=== PATIENT | male | born 1945 | race Caucasian/White ===

== ENCOUNTER 2017-04-14 20:12 | Emergency (ER) | payer BC ==
[~2017-04-14] VITALS: Ht 188 cm; Wt 81.6 kg
--- NOTE | ~2017-04-14 | CR63 ---
[facility] A Service of [facility] RADIOLOGY TEXT RESULTS PATIENT: CRISSY MARRERO LOCATION: [facility] : 46 UNIT #: [id number] AGE: [address]: Shila Sanford MD SEX: M ORDER DR: [id number] [facility] [address] [place], [place] [address] [id number] E MR#: [id number] Acc #: [id number] NAME: CRISSY MARRERO : 1945 SEX: M STUDY DATE/TIME: 04/14/2017 21:31 UNIT: [facility] ROOM: STUDY DESCRIPTION: CR Chest 2 View Attending Physician: Shila Sanford M.D. Ordering Physician: Shila Sanford M.D. Primary Care Physician: Edgar Arzate M.D. MEDICAL IMAGING REPORT This report is preliminary unless electronic signature is present EXAM Frontal and lateral views of the chest, 04/14/2017. INDICATIONS 71-year-old male with chest pain; fell this morning at 11 o'clock. Mild chest congestion, altered mental status. Confusion. COMPARISON Two-view chest compared with 12/07/2016. FINDINGS Cardiac silhouette unremarkable. The vascularity is normal. The lungs are clear. No pneumothorax. IMPRESSION Negative chest. No significant change. Dictated by... Que Kong M.D. THIS IS AN ELECTRONICALLY VERIFIED REPORT Que Kong M.D. at 04/15/2017 10:07 PM Josefina TD: 04/15/2017 14:32 JOB #: [id number] MEDICAL IMAGING REPORT Page 1 of 1 COPY
--- NOTE | ~2017-04-14 | CR229 ---
[facility] A Service of [facility] RADIOLOGY TEXT RESULTS PATIENT: CRISSY MARRERO LOCATION: [facility] : 46 UNIT #: [id number] AGE: [address]: Shila Sanford MD SEX: M ORDER DR: [id number] [place] [id number] [facility]. [place], [place] [address] [id number] E MR#: [id number] Acc #: [id number] NAME: CRISSY MARRERO : 1945 SEX: M STUDY DATE/TIME: 04/14/2017 21:32 UNIT: [place] ROOM: STUDY DESCRIPTION: CR Shoulder Min 2 View Lt Attending Physician: Shila Sanford M.D. Ordering Physician: Shila Sanford M.D. Primary Care Physician: Edgar Arzate M.D. MEDICAL IMAGING REPORT This report is preliminary unless electronic signature is present EXAM Left shoulder 04/14/2017. INDICATIONS 71-year-old male with confusion. Mild congestion and chest pain, fell this morning 11 o'clock. Left shoulder pain. TECHNIQUE 3 views left shoulder. COMPARISON Compared with 05/29/2012. FINDINGS The patient is status post prior fracture repair of the left humerus. A metallic plate and multiple screws are present and there is a medullary keron present. Hardware appears intact. No acute fracture identified. No shoulder separation or dislocation. Degenerative change of the glenohumeral joint and AC joint. IMPRESSION 1. Degenerative change in the left shoulder and prior left humerus fracture repair changes. 2. No acute fracture or dislocation. Dictated by... Que Kong M.D. THIS IS AN ELECTRONICALLY VERIFIED REPORT Que Kong M.D. at 04/15/2017 10:06 PM JF/julienne TD: 04/15/2017 14:28 [facility] A Service of [facility] RADIOLOGY TEXT RESULTS PATIENT: CRISSY MARRERO LOCATION: [facility] : 46 UNIT #: [id number] AGE: [address]: Shila Sanford MD SEX: M ORDER DR: JOB #: [id number] MEDICAL IMAGING REPORT Page 1 of 1 COPY
--- NOTE | ~2017-04-14 | CT71 ---
[facility] A Service of [facility] RADIOLOGY TEXT RESULTS PATIENT: CRISSY MARRERO LOCATION: [facility] : 46 UNIT #: [id number] AGE: [address]: Shila Sanford MD SEX: M ORDER DR: [id number] [facility] [address] [place], [place] [address] [id number] P MR#: [id number] Acc #: [id number] NAME: CRISSY MARRERO : 1945 SEX: M STUDY DATE/TIME: 04/14/2017 21:24 UNIT: [facility] ROOM: STUDY DESCRIPTION: CT Head Wo Contrast Attending Physician: Shila Sanford M.D. Ordering Physician: Shila Sanford M.D. Primary Care Physician: Edgar Arzate M.D. MEDICAL IMAGING REPORT This report is preliminary unless electronic signature is present EXAM Head CT, no contrast; 04/14/2017. INDICATIONS 71-year-old male who fell, contusion of the left eye, left forehead and left orbit, neck pain today. TECHNIQUE Noncontrast CT brain was performed. This CT exam was performed with one or more of the following radiation dose reduction techniques: automatic exposure control, adjustment of mA and/or kV according to patient size, and iterative reconstruction. COMPARISON There are no comparisons. FINDINGS CT BRAIN: There is generalized atrophy. Sulci and ventricles otherwise unremarkable. No midline shift. No evidence of acute intracranial hemorrhage. There is no mass, mass effect or edema to suggest acute infarct and no extraaxial fluid collections are present. The globes are intact. There is extensive periorbital soft tissue swelling on the left extending from the level of the left globe cephalad to the forehead and inferiorly along the zygomatic arch. The soft tissue swelling spans a distance of at least study 8.9 cm transverse. There is a focal periorbital hematoma measuring 15 x 10 mm. The patient has a subtle orbital floor fracture on the left, demonstrated on the facial bone CT. Please see that report for further details. There is chronic-appearing ethmoid, frontal, sphenoid and right maxillary sinus disease. There is an air-fluid level in the left maxillary sinus. No distinct calvarial fracture. [facility]. [facility] A Service of [facility] & [facility] RADIOLOGY TEXT RESULTS PATIENT: CRISSY MARRERO LOCATION: [facility] : 46 UNIT #: [id number] AGE: [address]: Shila Sanford MD SEX: M ORDER DR: IMPRESSION 1. Atrophy but no clearly acute intracranial process. No evidence of intracranial hemorrhage. 2. The patient has an orbital floor fracture on the left. Please see the facial bone CT for further details. 3. Periorbital soft tissue swelling with a periorbital hematoma on the left measuring 15 x 10 mm. 4. Air-fluid level in the left maxillary sinus. Chronic-appearing right maxillary sinus and ethmoid, sphenoid and frontal sinus disease. STAT * RESULT Dictated by... Que Kong M.D. THIS IS AN ELECTRONICALLY VERIFIED REPORT Que Kong M.D. at 04/15/2017 2:26 PM JF/abhilash TD: 04/14/2017 22:00 JOB #: [id number] MEDICAL IMAGING REPORT Page 1 of 1 COPY
--- NOTE | ~2017-04-14 | CT101 ---
[facility] A Service of [facility] & [facility] RADIOLOGY TEXT RESULTS PATIENT: CRISSY MARRERO LOCATION: [facility] : 46 UNIT #: [id number] AGE: [address]: Shila Sanford MD SEX: M ORDER DR: [id number] [facility] [address] [place], [place] [address] [id number] P MR#: [id number] [facility] #: [id number] NAME: CRISSY MARRERO : 1945 SEX: M STUDY DATE/TIME: 04/14/2017 21:05 UNIT: [facility] ROOM: STUDY DESCRIPTION: CT Maxillofacial Area Wo Cont Attending Physician: Shila Sanford M.D. Ordering Physician: Shila Sanford M.D. Primary Care Physician: Edgar Arzate M.D. MEDICAL IMAGING REPORT This report is preliminary unless electronic signature is present EXAM Facial bone CT no contrast 04/14/2017 INDICATIONS 71-year-old male who fell, contusion to the left eye and forehead and orbit. Neck pain today. TECHNIQUE Noncontrast CT of the facial bones was performed. Sagittal and coronal reformats performed. This CT exam was performed with one or more of the following radiation dose reduction techniques: automatic control, adjustment of mA and/or kV according to patient size, and iterative reconstruction. No comparisons. FINDINGS CT FACIAL BONES: There is a left periorbital soft tissue hematoma. Left globe grossly intact. Please see CT head same date for further details as this study was tailored to evaluate the osseous structures and the soft tissues are suboptimally characterized or assessed on this examination. There is periorbital soft tissue swelling extending cephalad anterior to the calvaria involving the left forehead and extending inferiorly to the zygomatic arch. Zygomatic arch is intact. There is a subtle minimally-displaced orbital floor fracture anteriorly on the left. There is an air-fluid level in the left maxillary sinus. No additional fracture identified. Nasal bone complex is intact. There is chronic opacification of the entire right maxillary sinus. More chronic-appearing ethmoid and sphenoid sinus disease. Mandible intact. Atherosclerotic calcifications of the carotid systems bilaterally are a risk factor for stroke. There are degenerative changes in the visualized cervical spine. IMPRESSION 1. Subtle orbital floor fracture anteriorly on the left. There is an air-fluid level in the left maxillary sinus. [facility] A Service of [facility] & [facility] RADIOLOGY TEXT RESULTS PATIENT: CRISSY MARRERO [id number] 47 UNIT #: [id number] AGE: [address]: Shila Sanford MD SEX: M ORDER DR: 2. Periorbital soft tissue swelling on the left extending cephalad to the level of the forehead and inferiorly along the zygomatic arch but no additional facial bone fracture identified. 3. Chronic-appearing ethmoid, sphenoid and right maxillary sinus disease. Minimal left frontal sinus disease also appears chronic. STAT * RESULT Dictated by... Que Kong M.D. THIS IS AN ELECTRONICALLY VERIFIED REPORT Que Kong M.D. at 04/15/2017 2:26 PM JF/tuan TD: 04/14/2017 21:57 JOB #: [id number] MEDICAL IMAGING REPORT Page 1 of 1 COPY
--- NOTE | ~2017-04-14 | CT52 ---
[facility] A Service of [facility] RADIOLOGY TEXT RESULTS PATIENT: CRISSY MARRERO LOCATION: [facility] : 46 UNIT #: [id number] AGE: [address]: Shila Sanford MD SEX: M ORDER DR: [id number] [facility] [address] [place], [place] [address] [id number] E MR#: [id number] Acc #: [id number] NAME: CRISSY MARRERO : 1945 SEX: M STUDY DATE/TIME: 04/14/2017 21:05 UNIT: [facility] ROOM: STUDY DESCRIPTION: CT Cervical Spine Wo Cont Attending Physician: Shila Sanford M.D. Ordering Physician: Shila Sanford M.D. Primary Care Physician: Edgar Arzate M.D. MEDICAL IMAGING REPORT This report is preliminary unless electronic signature is present EXAM CT cervical spine, 04/14/2017. HISTORY Fell; contusion left eye, left forehead, left orbit, neck pain times today. TECHNIQUE CT cervical spine performed. Bone and soft tissue windows reviewed. Sagittal and coronal reconstructions performed. This CT exam was performed with one or more of the following radiation dose reduction techniques: automatic exposure control, adjustment of mA and/or kV according to patient size, and iterative reconstruction. COMPARISON No prior CT cervical spine for comparison. FINDINGS Visualized portions of brain unremarkable. Visualized mastoid air cells clear. The visualized oropharyngeal, pharyngeal mucosal, retropharyngeal spaces, larynx, subglottic airway, superior mediastinum, and lung apices show no acute abnormality. Somewhat atrophic thyroid, but no focal abnormality. Visualized submandibular and parotid glands unremarkable. There are vascular calcifications including at the carotid bifurcations. No adenopathy. No indication of traumatic paraspinal soft tissue abnormality. There is some mild straightening of the normal cervical lordosis. Minimal approximately 1-mm anterolisthesis C2 on C3 felt to be secondary to facet degenerative change. Vertebral body heights normal. Mild intervertebral disc space narrowing C4-C5, C5-C6, and mild to moderate narrowing C6-C7. Multilevel disc and facet degenerative changes. No traumatic mal alignment. No fracture. C2-C3: Small posterior central disc bulge. Narrowing anterior thecal space. Mild central spinal canal narrowing. No cord contact or STS. [facility] A Service of [facility] RADIOLOGY TEXT RESULTS PATIENT: CRISSY MARRERO LOCATION: [facility] : 47 UNIT #: [id number] AGE: [address]: Shila Sanford MD SEX: M ORDER DR: compression. Neural foramina normal. C3-C4: Posterior disc bulge. Mild central spinal canal narrowing. There is anterior cord contact and some effacement of the anterior cord contour. Left greater than right uncovertebral hypertrophic change. Mild to moderate narrowing of the left neural foramen. C4-C5: Posterior disc osteophyte complex asymmetrically prominent, right paracentral region. Mild to [id number] central and right paracentral spinal canal narrowing. Cord contact. Some effacement of anterior cord contour. Narrowing of the right lateral recess. Mild right foraminal narrowing, due to uncovertebral degenerative change. C5-C6: Posterior disc osteophyte complex, more pronounced in right paracentral region. Anterior cord contact. Some effacement of anterior cord contour. Narrowing of the right lateral recess. Uncovertebral joint degenerative changes, right greater than left. Moderate to marked right foraminal narrowing. Exiting right nerve irritation or impingement is a consideration. C6-C7: Posterior concentric disc osteophyte complex. Anterior cord contact with effacement of anterior cord contour. Mild central spinal canal narrowing. Uncovertebral and facet degenerative changes bilaterally. Marked bilateral foraminal narrowing. Bilateral exiting nerve impingement likely. C7-T1, T1-T2, T2-T3, T3-T4: Unremarkable. IMPRESSION 1. No traumatic fracture or malalignment. There is some straightening of the normal cervical lordosis, and there is minimal, perhaps 1 mm, degenerative anterolisthesis C2 on C3. 2. Multilevel degenerative disc, facet, and uncovertebral changes. Please see [id number] descriptions in body of report above. Posterior disc bulges or disc osteophyte complexes C2-C3, C3-C4, C4-C5, C5-C6, C6-C7. Narrowing of the anterior thecal space at multiple levels. Multilevel anterior cord contact. Multilevel mild spinal canal narrowing. At C4-C5 and C5-C6, the disc osteophyte complexes are more pronounced in the right paracentral region with associated narrowing of the right lateral recesses. See descriptions above. 3. Multilevel foraminal narrowing, most pronounced bilaterally at C5-C6. Bilateral exiting nerve irritation or radha impingement at this level is possible. 4. No traumatic paraspinal soft tissue abnormality. 5. Carotid arterial calcifications including at the carotid bifurcations. Correlate clinically, and if warranted, consider further evaluation with elective carotid ultrasound. [facility]. [facility] A Service of [facility] RADIOLOGY TEXT RESULTS PATIENT: CRISSY MARRERO LOCATION: [facility] : 47 UNIT #: [id number] AGE: [address]: Shila Sanford MD SEX: M ORDER DR: Dictated by... Crissy Aleman M.D. THIS IS AN ELECTRONICALLY VERIFIED REPORT Crissy Aleman M.D. at 04/16/2017 2:44 PM CECIL/kobe TD: 04/15/2017 14:53 JOB #: [id number] MEDICAL IMAGING REPORT Page 1 of 1 COPY
[~2017-04-14 20:12] MED LIST: ASPIRIN81 M1 PO; BACIT-POLYMYXI3.5 GM OP; COLACE PO; COREG6.25 MG PO; FOLIC ACID1 MG PO; HYDRALAZINE HC100 MG PO; HYDROCHLOROTHIA25 MG PO; HYDROCODON-ACE1 EAC5 PO; LOPRESSOR100 MG PO; OXYCODONE HCL5 M1 PO; PRILOSEC40 MG PO; SYNTHROID125 PO; THIAMINE HCL100 MG PO; TOPROL XL100 MG PO; ZOCOR20 MG PO
== END 2017-04-14 22:43 | disposition home or self-care (01) ==
LOC: CED 20:12
DX: S02.32XA Fracture of orbital floor, left side, initial encounter for closed fracture (principal); F10.129 Alcohol abuse with intoxication, unspecified; I10 Essential (primary) hypertension; E03.9 Hypothyroidism, unspecified; Z88.8 Allergy status to other drugs, medicaments and biological substances; W18.30XA Fall on same level, unspecified, initial encounter; Y92.009 Unspecified place in unspecified non-institutional (private) residence as the place of occurrence of the external cause
CPT/HCPCS: 70450; 70486; 71020; 72125; 73030; 99284